=== PATIENT | male | born 2000 | race African-American/Black ===

== ENCOUNTER → 2022-01-22 10:03 | Outpatient (CLI) | payer OTHER, SELFPAY ==
--- NOTE | ~2022-01-22 | US_ITS ---
EXAMINATION: US abdomen complete DATE: 01/22/2022 11:00 INDICATION: Splenomegaly TECHNIQUE: Multiple grayscale and Doppler ultrasound images of the abdomen were obtained. COMPARISON: None available FINDINGS: Bowel gas obscures visualization of the pancreas. The visualized portions of the pancreas a re unremarkable. The liver is normal with normal echogenicity and echotexture. No surface nodularity. Normal hepatopetal flow in the main portal vein. The gallbladder is normal with no abnormal wall thi ckening, pericholecystic fluid or stones. The normal common bile duct measures 3 mm. There was no son ographic Bean sign. The visualized portions of the aorta and inferior vena cava are normal. The right kidney measures 9.5 x 3.3 x 3.7 cm. The left kidney measures 9.3 x 4.0 x 4.4 cm. The kidney s demonstrate normal parenchymal echogenicity. There is no hydronephrosis. The spleen is normal in ap pearance and measures 9.6 cm. IMPRESSION: 1. Unremarkable abdominal ultrasound. No splenomegaly. Reviewed, dictated and finalized at location F.
== END ==
PROVIDERS: PCP Nurse Practitioner Pediatrics; Visit Provider Nurse Practitioner Pediatrics
DX: R16.1 Splenomegaly, not elsewhere classified (principal)
CPT/HCPCS: 76700